=== PATIENT | male | born 1950 | race Caucasian/White ===

== ENCOUNTER → 2019-03-01 | Outpatient (CLI) | payer MEDICARE ==
--- NOTE | 2019-03-02 09:14 | Diagnostic Imaging Report ---
#[id number] - USBRELIMRT ULTRASOUND OF THE RIGHT BREAST : 03/01/2019 No prior exams were available for comparison. Real-time ultrasound was performed on the right breast. Retroareolar glandular tissue is present consistent with gynecomastia. There are no solid or cystic masses identified. IMPRESSION: BENIGN There is no sonographic evidence of malignancy. ROJAS CASTILLO M.D. ct/:03/01/2019 16:23:08 Sales Inspector: ELFEGO TREVINO [facility], [facility] letter sent: Normal Exam Ultrasound BI-RADS: 2 Benign
== END ==
LOC: US 12:34
PROVIDERS: ATTEND Surgery
DX: N63.10 Unspecified lump in the right breast, unspecified quadrant (principal)